=== PATIENT | female | born 1975 | race Two or more races ===

== ENCOUNTER 2024-12-30 01:28 | Emergency (ER) | payer OTHER ==
[~2024-12-30] VITALS: Ht 157.5 cm; Wt 56.7 kg
[~2024-12-30 01:28] MED LIST: ASPIR 8181 MG PO; BYSTOLIC10 MG; BYSTOLIC2.5 MG; CATAFLAM50 MG PO; CELEBREX50 MG PO; ESGIC CAPSULE1 CAP PO; INDAPAMIDE1.25 MG; NEXIUM20 MG/PACK PO; TOPAMAX15 MG PO
[2024-12-30] MEDS ORDERED: NORVASC2.5 M1 PO (01:39)
[2024-12-30] MEDS ORDERED: SINGULAIR4 M1 (01:39)
[2024-12-30] MEDS ORDERED: ZYRTEC10 M3 (01:39)
[2024-12-30] MEDS ORDERED: NEXIUM2.5 MG PO (01:39)
[2024-12-30] MEDS ORDERED: KETOROLAC TROMETHAMINE 30 MG VIAL IV STA (02:37)
[2024-12-30] MEDS ORDERED: DIPHENHYDRAMINE HCL 50 MG/ML VIAL 1ML IM STA (02:38)
[2024-12-30] MEDS ORDERED: HALOPERIDOL LACTATE 5 MG/ML AMPUL IM STA (02:38)
== END 2024-12-30 04:27 | disposition home or self-care (01) ==
LOC: ER 01:28
DX: G43.909 Migraine, unspecified, not intractable, without status migrainosus (principal); I10 Essential (primary) hypertension